=== PATIENT | female | born 1970 | race African-American/Black ===

== ENCOUNTER → 2019-08-10 | Outpatient (CLI) | payer MEDICARE ==
[2019-08-10 12:47] LABS: HEMOGLOBIN 8.7 g/dL (12.0-16.0)
[2019-08-10 13:03] LABS: INR 1.04; PROTHROMBIN TIME 14.2 seconds (11.9-14.5)
[2019-08-10 13:04] LABS: PARTIAL THROMBOPLASTIN TIME 31.8 seconds (23.8-35.5)
--- NOTE | 2019-08-10 13:45 | Diagnostic Imaging Report ---
HISTORY: ^[id number] ^[id number] COMPARISON: None. TECHNIQUE: Ultrasound examination of the abdomen was performed with spectral and color Doppler imaging. FINDINGS: Liver: The liver measures 17.9 cm and is echogenic and slightly nodular. No focal lesions. The main portal vein measures 17.9 cm. Biliary: Contracted. Patient reports eating at 0600. No stones. No sludge, pericholecystic fluid or wall thickening. Negative sonographic Hernandez's sign. Common bile duct measures 0.3 cm. No intrahepatic biliary ductal dilatation. Spleen: No splenomegaly. Pancreas: Visualized portions are unremarkable. Kidneys: Echogenic right kidney. Atrophic left kidney. No hydronephrosis nor sonographically evident solid mass lesion. Midline Vessels: Visualized portions of the IVC and aorta are unremarkable. Peritoneum: Small amount of anechoic ascites. IMPRESSION: 1. Cirrhosis with small amount of ascites. 2. Echogenic right kidney and atrophic left kidney. 3. Contracted gallbladder. Signed by: Isaiah Cantrell MD on 08/10/2019 1:42 PM
== END ==
LOC: US 12:16
PROVIDERS: ATTEND Internal Medicine Gastroenterology
DX: R18.8 Other ascites (principal)
CPT/HCPCS: 36415; 76700; 85014; 85049; 85610; 85730